=== PATIENT | female | born 1965 | race Caucasian/White ===

== ENCOUNTER → 2019-09-30 | Outpatient (CLI) | payer OTHER ==
[~2019-09-30] MED LIST: AMLO-150 PO; ATOR10TA9 PO; CHOL200024 PO; CYAN1TAB29 PO; ESCI10TA10 PO; METO25TA91 PO; PANT40TA5 PO; TURM500C4 PO; VIT1TABL34 PO; vitamin e PO
== END | disposition home or self-care (01) ==
LOC: STAR 15:14
PROVIDERS: ATTEND Orthopaedic Surgery
DX: Z01.818 Encounter for other preprocedural examination (principal); S83.241A Other tear of medial meniscus, current injury, right knee, initial encounter; X58.XXXA Exposure to other specified factors, initial encounter; Y93.89 Activity, other specified; Y92.89 Other specified places as the place of occurrence of the external cause; Y99.8 Other external cause status
CPT/HCPCS: 93005

== ENCOUNTER 2019-10-08 09:09 | Day surgery (SDC) | payer OTHER ==
[~2019-10-08] VITALS: Ht 172.7 cm; Wt 78.2 kg
[~2019-10-08 09:09] MED LIST changes: +BUPIVACAINE/PF 0.5% ONE; +EPINEPHRINE 1 MG/ML, 1ML ONE; +LIDOCAINE 1%-EPI 1:100K, 20ML ONE
[2019-10-08] MEDS ORDERED: ACETAMINOPHEN 500 MG TABLET PO ONE (09:30)
[2019-10-08] MEDS ORDERED: GABAPENTIN 300 MG CAPSULE PO ONE (09:30)
[2019-10-08] MEDS ORDERED: LACTATED RINGERS 1,000 ML IV SCH (09:32)
[2019-10-08 09:53] VITALS: BP 108/75
[2019-10-08 10:24] LABS: HCG UR SG 1.019 (1.003-1.030)
[2019-10-08] MEDS ORDERED: FENTANYL PF 100 MCG/2ML ONE ×2 (11:01→12:20)
[2019-10-08] MEDS ORDERED: MIDAZOLAM 1 MG/ML, 2ML ONE (11:01)
[2019-10-08] MEDS ORDERED: LIDOCAINE 1%-EPI 1:100K, 30ML INFIL ONE (11:40)
[2019-10-08] MEDS ORDERED: PROPOFOL 10 MG/ML, 20ML ONE (11:46)
[2019-10-08] MEDS ORDERED: NEOSTIGMINE 1 MG/ML, 10ML ONE (11:46)
[2019-10-08] MEDS ORDERED: SUCCINYLCHOLINE 20 MG/ML, 10ML ONE (11:46)
[2019-10-08] MEDS ORDERED: ONDANSETRON 2MG/ML, 2ML ONE (11:46)
[2019-10-08] MEDS ORDERED: ROCURONIUM 10MG/ML,5ML ONE (11:46)
[2019-10-08] MEDS ORDERED: DEXAMETHASONE 4 MG/ML, 1ML ONE (11:46)
[2019-10-08] MEDS ORDERED: GLYCOPYRROLATE 0.2MG/1ML, 5ML ONE (11:46)
[2019-10-08] MEDS ORDERED: CEFAZOLIN 1,000 MG ONE (11:46)
[2019-10-08] MEDS ORDERED: BUPIVACAINE/PF-EPI 0.5% 1:200K INFIL ONE (11:50)
[2019-10-08] MEDS ORDERED: PROMETHAZINE 25 MG/ML, 1ML IV PRN (12:00)
[2019-10-08] MEDS ORDERED: DIAZEPAM 5 MG/ML, 2ML IVPush PRN (12:00)
[2019-10-08] MEDS ORDERED: HYDROmorphone 1 MG/ML, 1ML INJ IVPush PRN (12:00)
[2019-10-08] MEDS ORDERED: hydrALAzine 20 MG/ML, 1ML IV PRN (12:00)
[2019-10-08] MEDS ORDERED: LABETALOL 5MG/ML, 20ML IV PRN (12:00)
[2019-10-08] MEDS ORDERED: ACETAMINOPHEN 325 MG TABLET PO PRN (12:00)
[2019-10-08] MEDS ORDERED: KETOROLAC 30 MG/1 ML IV PRN (12:00)
[2019-10-08] MEDS ORDERED: ALBUTEROL SULFATE 2.5 MG/3 ML NPPB PRN (12:00)
[2019-10-08] MEDS ORDERED: OXYcodone 5 MG/5 ML ORAL.SOL UDC PO PRN (12:00)
[2019-10-08] MEDS ORDERED: MEPERIDINE/PF 25MG/0.5ML IVPush PRN (12:00)
[2019-10-08] MEDS ORDERED: OXYcodone 5 MG/5 ML ORAL.SOL UDC ONE (12:21)
[2019-10-08] MEDS: FENTANYL PF 100 MCG/2ML IV PRN ×2 (12:25→12:35)
== END 2019-10-08 13:40 | disposition home or self-care (01) ==
LOC: OUT 09:09
PROVIDERS: ATTEND Orthopaedic Surgery
DX: S83.231A Complex tear of medial meniscus, current injury, right knee, initial encounter (principal); S83.281A Other tear of lateral meniscus, current injury, right knee, initial encounter; M22.41 Chondromalacia patellae, right knee; M17.11 Unilateral primary osteoarthritis, right knee; I10 Essential (primary) hypertension; E78.5 Hyperlipidemia, unspecified; Z79.1 Long term (current) use of non-steroidal anti-inflammatories (NSAID); Z79.899 Other long term (current) drug therapy; Z88.2 Allergy status to sulfonamides; Z82.61 Family history of arthritis; X58.XXXA Exposure to other specified factors, initial encounter; Y93.89 Activity, other specified; Y92.89 Other specified places as the place of occurrence of the external cause; Y99.8 Other external cause status
CPT/HCPCS: 29880; 81025; J0171; J0690; J1100; J2250; J2405; J2704; J3010; J3490; J7120; J2710; J0330

== ENCOUNTER → 2020-03-07 | Outpatient (CLI) | payer OTHER ==
[~2020-03-07] MED LIST changes: -BUPIVACAINE/PF 0.5% ONE; -EPINEPHRINE 1 MG/ML, 1ML ONE; -LIDOCAINE 1%-EPI 1:100K, 20ML ONE
== END | disposition home or self-care (01) ==
LOC: CVU 15:36
PROVIDERS: ATTEND Internal Medicine Cardiovascular Disease
DX: I34.0 Nonrheumatic mitral (valve) insufficiency (principal); R09.89 Other specified symptoms and signs involving the circulatory and respiratory systems; R06.02 Shortness of breath; I20.1 Angina pectoris with documented spasm
CPT/HCPCS: 93306